=== PATIENT | female | born 1965 ===

== ENCOUNTER 2018-06-29 08:14 | Day surgery (SDC) | payer BC ==
[2018-06-28 10:00] VITALS: BMI 47.0
[2018-06-29] MEDS ORDERED: Midazolam 2 MG/2 ML VIAL ONE (11:00)
[2018-06-29] MEDS ORDERED: Propofol 10 mg/ml Inj (20 ML) ONE (11:01)
[2018-06-29] MEDS ORDERED: Oxytocin 10 Units/ml Inj ONE (12:05)
[2018-06-29] MEDS ORDERED: cefOXitin IV 2 gm in Dextrose 2 GM/50 ML BAG IVPB ONE (12:20)
[2018-06-29] MEDS ORDERED: HYDROmorphone 0.5 mg/0.5 ml ISec IVP PRN (12:28)
[2018-06-29 13:43] VITALS: RESP 16; O2SAT 95
[2018-06-29 16:09] VITALS: BP 118/61; PULSE 75; TEMP 97.8
--- NOTE | 2018-06-29 18:20 | PCM.SURG1 ---
Surgeon's Initial Post Op Note - Surgeon's Notes Surgeon: dr garza Salon Shampoo Assistant: dr barker Type of Anesthesia: General LMA Anesthesia Administered By: dr valles Pre-Operative Diagnosis: 53 yr with pmb/fbroid uyetus Operative Findings: see the op reort. proplasing myoma Post-Operative Diagnosis: same with 5 cm propsing myoma Operation Performed: vaginal myomectomy. myasure. d&c, hysterscopy Specimen/Specimens Removed: proplsing myoma. ecc. emc. sumbusal fib Estimated Blood Loss: EBL {In ML}: 150 Blood Products Given: N/A Drains Used: No Drains Post-Op Condition: Good Date of Surgery/Procedure: 06/29/18 Time of Surgery/Procedure: 17:00
--- NOTE | 2018-06-30 07:32 | OP ---
PROCEDURE DATE: 06/29/2018 PREOPERATIVE DIAGNOSES: A 53-year-old with menopause, menometrorrhagia, fibroid. POSTOPERATIVE DIAGNOSES: Prolapsed myoma, submucosal fibroid. PROCEDURE PERFORMED: Vaginal myomectomy, dilatation and curettage, hysteroscopy, MyoSure. SURGEON: Frandy Downey MD. CAGE UNLOADER: Gigi Boyd MD. ANESTHESIA: General anesthesia. ANESTHESIOLOGIST: . DESCRIPTION OF PROCEDURE: After informed consent was obtained, the patient was brought to the operating room, placed on the table where general anesthesia was given. Once the anesthesia was found to be adequate, the patient was prepped and draped in the normal sterile fashion. Examination under anesthesia revealed the uterus, a 4-5 cm vaginal myoma was protruding. When the myoma was held up with the Allis, it started bleeding so decision was made to do a myomectomy, where the myoma was prolapsing. Bovie was used to cut the fibroid, fibroid was cut using the Bovie and it was held up with 2 Allis. After retracting it with the lever, it was cut with Bovie and it was after that. The cervix lifted up with the tenaculum. After that, the hysteroscope was introduced. It was found there was a stalk of the fibroid which was going towards the lower uterine segment and there was a small submucosal fibroid in the anterior lip of the cervix, decision was made to use the MyoSure, which was then taken out after that the stalk on the lower uterine segment was taken out using the MyoSure of this with the prolapsing myoma and then the submucosal fibroid anterior lip of the uterus was done. Then ECC was sent to the pathology. The bleeding with lot of pressure was Pitocin was given, in the uterus there was minimal bleeding. After that, the tenaculum was taken out. The patient tolerated the procedure well. Lap, sponge, and instrument counts were correct x2. The patient to follow up with Dr. Downey in one week . Frandy Downey MD
== END 2018-06-29 14:40 | disposition home or self-care (01) ==
LOC: C.SDS 08:14
PROVIDERS: ATTEND Obstetrics & Gynecology
DX: N95.0 Postmenopausal bleeding (principal); R93.8 Abnormal findings on diagnostic imaging of other specified body structures; D25.0 Submucous leiomyoma of uterus; Z78.0 Asymptomatic menopausal state
CPT/HCPCS: 58558; 82948; 88305; J0694; J2250; J2704; J3010